=== PATIENT | male | born 1995 | race Caucasian/White ===

== ENCOUNTER 2019-10-21 09:29 | Emergency (ER) | payer MEDICAID, OTHER ==
[~2019-10-21] VITALS: Ht 154.9 cm; Wt 111.1 kg
[2019-10-21 09:40] VITALS: BP 132/79
== END 2019-10-21 11:57 | disposition home or self-care (01) ==
LOC: ER 09:29
DX: L01.00 Impetigo, unspecified (principal)

== ENCOUNTER 2022-04-02 21:38 | Emergency (ER) | payer MEDICAID ==
[~2022-04-02] VITALS: Ht 190.5 cm; Wt 109.0 kg
[2022-04-02] MEDS ORDERED: LORazepam 2MG/ML-1ML VIAL IV ONE (21:45)
[2022-04-02] MEDS ORDERED: diazePAM 5 MG TAB PO ONE (21:45)
[2022-04-02] MEDS ORDERED: MIDAZOLAM HCL 2MG/2ML 2ml VIAL (1mg/ml) IV ONE (21:45)
[2022-04-02] MEDS ORDERED: TETANUS-DIPTH-ACEL PERTUSSIS 0.5ML SYR Tdap IM ONE (22:00)
[2022-04-02] MEDS ORDERED: SODIUM CHLORIDE 0.9% 1,000 ML IV ONE (22:00)
[2022-04-02] MEDS ORDERED: IOHEXOL 350 MG/ML 100ML IJ ONE (22:10)
[2022-04-02 22:36] LABS: Basophils # (auto) 0.1 10 ^3/uL (0-0.2); Basophils % (auto) 0.8 % (0.0-2.0); Eosinophils # (auto) 0.1 10 ^3/uL (0-0.8); Eosinophils % (auto) 1.1 % (0.0-7.0); Hematocrit 41.9 % (41.0-53.0); Hemoglobin 14.3 g/dL (13.5-17.5); Lymphocytes # (auto) 2.7 10 ^3/uL (0.4-5.4); Lymphocytes % (auto) 27.4 % (10.0-50.0); Mean Corpuscular Hemoglobin 32.3 pg (28.0-32.0); Mean Corpuscular Hgb Conc. 34.2 g/dL (32.0-36.0); Mean Corpuscular Volume 94.3 fL (80.0-100.0); Monocytes # (auto) 0.6 10 ^3/uL (0-1.3); Monocytes % (auto) 6.1 % (0.0-12.0); Neutrophils # (auto) 6.4 10 ^3/uL (1.6-8.6); Neutrophils % (auto) 64.6 % (37.0-80.0); Red Blood Cells 4.44 10^6/uL (4.5-5.90); Red Cell Distribution Width 13.5 % (11.8-14.3); White Blood Cell 9.9 10^3/uL (4.4-10.8)
[2022-04-02 23:01] LABS: Albumin 4.1 g/dL (3.4-5.0); Calcium 8.6 mg/dL (8.5-10.1); Potassium 3.3 mmol/L (3.5-5.1)
[2022-04-02 23:03] LABS: BUN/Creatinine Ratio 14.4
[2022-04-02 23:06] LABS: Bilirubin, Total 0.5 mg/dL (0.2-1.0); Total Protein 7.5 g/dL (6.4-8.2)
[2022-04-03] MEDS ORDERED: HYDROmorphone HCL 2 MG/ML VL/or syr IV ONE ×2 (00:30→01:35)
[2022-04-03 03:07] VITALS: BP 119/74
[2022-04-03] MEDS ORDERED: ceFAZolin 1GM/50ML 50 ML IV ONE (03:45)
[2022-04-03] MEDS ORDERED: CLIN-203 PO (04:39)
== END 2022-04-03 05:01 | disposition home or self-care (01) ==
LOC: ER 21:38
DX: S71.112A Laceration without foreign body, left thigh, initial encounter (principal); Y04.8XXA Assault by other bodily force, initial encounter; Y93.89 Activity, other specified; Y92.89 Other specified places as the place of occurrence of the external cause; Y99.8 Other external cause status
CPT/HCPCS: 12002; 36415; 70450; 73706; 80053; 85025; 90471; 90715; 96361; 96365; 96375; 96376; 99285; J0690; J1170; J2250; J7030; Q9967